=== PATIENT | male | born 1970 | race Caucasian/White ===

== ENCOUNTER 2020-12-04 08:45 | Outpatient (REF) | payer BC, SELFPAY ==
[2020-12-04 09:34] LABS: MANUAL DIFF FLAG NO
[2020-12-04 09:47] LABS: Basophils Percent Auto 0.3 % (0-2); Eosinophils Absolute Auto 0.1 X10*3/uL (0.0-0.4); Hematocrit 45.2 % (42-52); Hemoglobin 15.4 g/dl (14.0-18.0); Imm Gran Abs Auto 0.01 X10*3/uL (0.00-0.03); Imm Gran Pct Auto 0.2 % (0.0-0.4); Lymphocytes Absolute Auto 2.8 X10*3/uL (1.2-4.9); Lymphocytes Percent Auto 45.9 % (20-40); Mean Corpuscular HGB Conc 34.1 g/dl (31.0-36.0); Mean Corpuscular Hemoglobin 30.7 pg (27.0-33.0); Mean Corpuscular Volume 90.2 fL (80-98); Mean Platelet Volume 10.3 fL (9.4-12.4); Monocytes Absolute Auto 0.4 X10*3/uL (0.1-1.2); Monocytes Percent Auto 6.8 % (2-11); Neutrophils Absolute Auto 2.7 X10*3/uL (2.0-8.3); Neutrophils Percent Auto 44.8 % (45-73); Platelet Count 169 X10*3/uL (160-400); Red Blood Count 5.01 X10*6/uL (4.60-5.80); Red Cell Distribution Width 12.5 % (11.0-16.0)
[2020-12-04 09:54] LABS: Alanine Aminotransferase 35 U/L (0-40); Albumin Level 4.7 g/dL (3.5-5.0); Alkaline Phosphatase 49 U/L (39-117); Anion Gap 15 (12-20); Aspartate Amino Transferase 28 U/L (5-37); Bilirubin Total 0.8 mg/dL (0.0-1.0); Blood Urea Nitrogen 13 mg/dL (9-16); Calcium 9.4 mg/dL (8.4-10.2); Carbon Dioxide 27 mmol/L (22-29); Chloride 104 mmol/L (96-108); Cholesterol 199 mg/dL; Estimated Glomerular Filt Rate > 60; Glucose Fasting 99 mg/dL (60-99); HDL Cholesterol 35 mg/dL; LDL Cholesterol Calculated 127 mg/dl; Potassium 4.2 mmol/L (3.3-5.1); Sodium 142 mmol/L (135-145); Total Protein 7.2 g/dL (6.5-8.0); Triglycerides 187 mg/dL; Uric Acid 5.5 mg/dL (3.4-7.0)
== END 2020-12-04 08:46 | disposition home or self-care (01) ==
LOC: HO.LAB 08:45
PROVIDERS: PCP Internal Medicine; Visit Provider Internal Medicine
DX: I10 Essential (primary) hypertension (principal); M10.9 Gout, unspecified
CPT/HCPCS: 36415; 80053; 80061; 84443; 84550; 85025

== ENCOUNTER 2022-12-23 10:19 | Outpatient (REF) | payer BC, SELFPAY ==
[2022-12-23 10:34] LABS: MANUAL DIFF FLAG NO
[2022-12-23 11:02] LABS: Basophils Percent Auto 0.4 % (0-2); Eosinophils Absolute Auto 0.1 X10*3/uL (0.0-0.4); Eosinophils Percent Auto 1.1 % (0-4); Hematocrit 45.2 % (42.0-52.0); Hemoglobin 15.6 g/dl (14.0-18.0); Imm Gran Abs Auto 0.02 X10*3/uL (0.00-0.03); Imm Gran Pct Auto 0.3 % (0.0-0.4); Lymphocytes Absolute Auto 2.7 X10*3/uL (1.2-4.9); Lymphocytes Percent Auto 37.7 % (20-40); Mean Corpuscular HGB Conc 34.5 g/dl (31.0-36.0); Mean Corpuscular Hemoglobin 31.1 pg (27.0-33.0); Mean Corpuscular Volume 90.2 fL (80.0-98.0); Mean Platelet Volume 10.2 fL (9.4-12.4); Monocytes Absolute Auto 0.5 X10*3/uL (0.1-1.2); Monocytes Percent Auto 6.6 % (2-11); Neutrophils Absolute Auto 3.9 x10*3/uL (2.0-8.3); Neutrophils Percent Auto 53.9 % (45-73); Platelet Count 175 X10*3/uL (160-400); Red Blood Count 5.01 X10*6/uL (4.60-5.80); Red Cell Distribution Width 13.2 % (11.0-16.0); White Blood Count 7.3 X10*3/uL (4.8-10.8)
[2022-12-23 11:56] LABS: Alanine Aminotransferase 49 U/L (0-40); Albumin Level 4.4 g/dL (3.5-5.0); Alkaline Phosphatase 46 U/L (39-117); Anion Gap 12 (12-20); Aspartate Amino Transferase 35 U/L (5-37); Blood Urea Nitrogen 9 mg/dL (9-16); Calcium 9.3 mg/dL (8.4-10.2); Carbon Dioxide 29 mmol/L (22-29); Chloride 104 mmol/L (96-108); Cholesterol 179 mg/dL; Estimated Glomerular Filt Rate > 60; Glucose Fasting 95 mg/dL (60-99); HDL Cholesterol 35 mg/dL; LDL Cholesterol Calculated 106 mg/dl; Potassium 3.7 mmol/L (3.3-5.1); Sodium 141 mmol/L (135-145); Total Protein 7.2 g/dL (6.5-8.0); Triglycerides 194 mg/dL
[2022-12-23 12:00] LABS: Thyroid Stimulating Hormone 1.46 uIU/mL (0.32-4.0)
== END 2022-12-23 10:20 | disposition home or self-care (01) ==
LOC: HO.LAB 10:19
PROVIDERS: Visit Provider Internal Medicine
DX: D64.9 Anemia, unspecified (principal); N28.9 Disorder of kidney and ureter, unspecified; E03.9 Hypothyroidism, unspecified; E78.5 Hyperlipidemia, unspecified
CPT/HCPCS: 36415; 80053; 80061; 84443; 85025

== ENCOUNTER 2023-12-18 10:05 | Outpatient (REF) | payer BC, SELFPAY ==
[2023-12-19 10:44] LABS: Immunoglobulin A 176 mg/dL (47-310)
[2023-12-19 20:08] LABS: Gliadin Deamidated IgA Ab 4.8 U/mL; Gliadin Deamidated IgG Ab <1.0 U/mL
[2023-12-21 12:18] LABS: Endomysial IgA Antibody Negative (Negative)
[2023-12-22 08:52] LABS: Transglutaminase Ab IgG <1.0 U/mL; Transglutaminase IgA <1.0 U/mL
== END 2023-12-18 10:06 | disposition home or self-care (01) ==
LOC: HO.LAB 10:05
PROVIDERS: PCP Internal Medicine; Visit Provider Internal Medicine
DX: K58.0 Irritable bowel syndrome with diarrhea (principal)
CPT/HCPCS: 36415; 82784; 86231; 86258; 86364

== ENCOUNTER 2023-12-22 08:25 | Day surgery (SDC) | payer BC, SELFPAY ==
--- NOTE | 2023-12-20 11:57 | HO.ANESPROP2 ---
Documented by User: Carly Radford NP 12/20/23 11:57 HPI - Anesthesia Eval Consult details Narrative: 53yo M for Colonoscopy [facility] Active Problems Active Problems: All Active Problems Physical exam (Acute) Hypertension (Acute) Gout (Acute) Past Medical History Medical History (Updated 12/20/23 @ 13:58 by Myrna Huntley RN) HTN (hypertension) Gout Family History Family History (Updated 12/13/22 @ 11:07 by EVERARDO Mason) Mother No problems noted. Father No problems noted. Surgical History Surgical History (Updated 12/20/23 @ 14:00 by Myrna Huntley RN) History of bilateral inguinal hernia repair Social History Social History (Updated 12/20/23 @ 13:58 by Myrna Huntley RN) Housing: House Alcohol intake: current Alcohol intake frequency: a few times a week Patient Tobacco Use Status: Never used Tobacco e-Cigarette/Vaping Use: Never Used Second Hand Smoke Exposure: No Use of substances other than those prescribed or required for medical reasons: No Are you DNR?: No Advance Directives: No Advance Directives Information Provided: Yes service: No Current occupational status: employed 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 Father No problems noted. Family history of problems with anesthesia: No Surgical History Surgical History (Updated 12/20/23 @ 14:00 by Myrna Huntley RN) History of bilateral inguinal hernia repair History of Problems with Anesthesia: No Social History Social History (Updated 12/20/23 @ 13:58 by Myrna Huntley RN) Housing: House Alcohol intake: current Alcohol intake frequency: a few times a week Patient Tobacco Use Status: Never used Tobacco e-Cigarette/Vaping Use: Never Used Second Hand Smoke Exposure: No Use of substances other than those prescribed or required for medical reasons: No Are you DNR?: No Advance Directives: No Advance Directives Information Provided: Yes service: No Current occupational status: employed 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 Cognitive needs: No Hearing needs: No Vision needs: Yes (glasses) Meds Allergies Allergy/AdvReac Type Severity Reaction Status Date / Time No Known Allergies Allergy Verified 12/27/22 13:08 Exam Airway Mallampati Class: II TM Dist: >3cm Neck ROM: Full Assessment and Plan Assessment Anesthesia Assessment: Anesthesia Plan Discussed Final Anesthetic Review Family History of Problems with Anesthesia: No History of Problems with Anesthesia: No NPO: Yes ASA Class: II Final Preanesthetic Review: No Changes in Pt Med Stat, Meds/Allgs Chart Reviewed, Consent Obtained/Reviewed and Anes Risks/Benef Reviewed Patient Risk: Low Procedure Risk: Low Anesthetic Plan Anesthetic Plan: TIVA Disposition: Standard PACU
[2023-12-20 13:58] VITALS: BMI 29.2
[2023-12-22 08:56] VITALS: BMI 27.3
[2023-12-22 09:00] VITALS: BP 160/97; PULSE 67; RESP 16; TEMP 36.8; O2SAT 96
[2023-12-22] MEDS: Lactated Ringers 1,000 ML 100 ML IVCONT (09:19)
[2023-12-22 10:56] VITALS: BP 109/60; PULSE 75; RESP 16; TEMP 36.1; O2SAT 97
--- NOTE | 2023-12-22 10:59 | P.BOP_ITS ---
Brief Operative Note Date of Service: 12/22/23 Pre-op diagnosis: Screening, Irregular BM's Post-op diagnosis: other (Colon polyps) Procedure: Colonoscopy to the cecum and TI with biopsies, and bx/removal of polyps Surgeon: Donny Olivarez MD Anesthesia: MAC Was an Senior Architectural Designer used for this Procedure?: No Estimated blood loss (mL): 2.0 Pathology: other (A. Cecal polyp B. Ascending colon C. Descending colon D. Distal rectal polyp) Condition: stable Disposition: PACU
[2023-12-22 11:11] VITALS: BP 115/70; PULSE 55; RESP 18; TEMP 36.1; O2SAT 98
--- NOTE | 2023-12-22 14:35 | OP_ITS ---
DATE OF SERVICE: 12/22/2023 SURGEON: Donny Olivarez MD INDICATIONS: The patient presents for evaluation of colorectal cancer screening and irregular bowel movements. Full consent has been obtained from him for this, including risks of bleeding and perforation. PREOPERATIVE DIAGNOSIS: Colorectal cancer screening and irregular bowel movements. POSTOPERATIVE DIAGNOSIS: PROCEDURE PERFORMED: Colonoscopy to the cecum and terminal ileum with biopsies and biopsy and removal of polyps. ESTIMATED BLOOD LOSS: COMPLICATIONS: ANESTHESIA: Monitored anesthesia care. ASSISTANTS: SPECIMENS: POSTOPERATIVE DIAGNOSES: Colorectal cancer screening and irregular bowel movements, small colon polyps, rule out microscopic colitis, mild sigmoid diverticulosis, internal hemorrhoids. DESCRIPTION OF PROCEDURE: The patient was placed in the left lateral decubitus position. The digital rectal exam revealed no abnormalities. The Olympus video pediatric colonoscope was entered into the rectum and advanced easily to the cecum. Once in the cecum, I did identify normal-appearing cecal pouch other than a 3 mm polyp, which was biopsied and completely removed with a cold biopsy forceps. The remainder of the cecum appeared completely normal including the appendiceal orifice. The terminal ileum was cannulated and appeared normal. Scope was withdrawn back in the colon. The ileocecal valve appeared normal. The scope was then slowly withdrawn assessing all mucosal surfaces carefully. Preparation was excellent. There was no evidence of any colitis nor angiodysplasia. Random biopsies were obtained in the ascending and descending colon. There was an occasional diverticulum in the ascending colon and a mild amount of diverticulosis in the sigmoid colon. In the rectum, scope was retroflexed visualizing internal hemorrhoids as well as a 3 or 4 mm polyp, which was biopsied and completely removed with a cold biopsy forceps. The scope was straightened and withdrawn from the patient. He tolerated the procedure well and was returned to the recovery area in stable condition. IMPRESSION: 1. Small colon polyps. 2. Diverticulosis. 3. Rule out microscopic colitis. 4. Internal hemorrhoids. PLAN: The results of the biopsies will be checked. If the polyp is a tubular adenoma, I would recommend a followup coloscopy in 5 years. If they are both hyperplastic, I would recommend a followup coloscopy in 10 years for screening. He was advised not to use any aspirin nor NSAIDs for 1 week. He was advised to continue to use a fiber supplement to see if that can help improve his bowel movement irregularity. Recent laboratories for celiac disease were negative. He will see me on a p.r.n. basis. MD MARTIN Cruz/VITA / [id number] MTDD
== END 2023-12-22 11:37 | disposition home or self-care (01) ==
PROVIDERS: PCP Internal Medicine; Visit Provider Internal Medicine
PROC: 0DJD8ZZ Inspection of Lower Intestinal Tract, Via Natural or Artificial Opening Endoscopic (ICD-10-PCS; CPT 45378; principal; 2023-12-22 08:30)
DX: K62.5 Hemorrhage of anus and rectum (principal); R19.4 Change in bowel habit; D12.0 Benign neoplasm of cecum; D12.8 Benign neoplasm of rectum; K57.30 Diverticulosis of large intestine without perforation or abscess without bleeding; K64.8 Other hemorrhoids; I10 Essential (primary) hypertension
CPT/HCPCS: 45380; 88305; J2704

== ENCOUNTER 2023-12-29 10:03 | Outpatient (AMB) | payer BC, SELFPAY ==
[2023-12-29 10:04] VITALS: BP 142/90; PULSE 72; O2SAT 97; BMI 27.4
--- NOTE | 2023-12-29 10:04 | A.OFFPC_ITS ---
Vital Signs 12/29/23 10:04 Height 5 ft 10 in Weight 191 lb 0.2 oz BMI 27.4 BP 142/90 H Blood Pressure Location Lt brachial Position Sitting Pulse 72 Pulse Source Pulse Oximeter Pulse Oximetry (%) 97 Oxygen Delivery Method Room Air Intake Visit Reasons: Annual Exam- SEE BULLETIN BOARD Professor Of Radiology Required: No Accompanied by: Self / Same As Patient Allergies No Known Allergies Allergy (Verified 12/29/23 10:05) Medication List - Last Reconciled 12/29/23 by Harshad Awad MD allopurinol 300 mg PO DAILY lisinopril 10 mg PO DAILY Tobacco use date assessed: 12/29/23 Dental Screening Dental Screen Date: 12/29/23 Did you have a dental visit in the last 12 months?: Yes Did you have a dental problem in the last 6 months where you did not have access to dental care?: No Was dental information given to patient?: Patient has dentist HPI Annual Exam- SEE BULLETIN BOARD HPI Details HTN and gout; bp has been high [facility] Medical History (Updated 12/29/23 @ 10:24 by Harshad Awad MD) HTN (hypertension) Gout Surgical History (Updated 12/20/23 @ 14:00 by Myrna Huntley RN) History of bilateral inguinal hernia repair Family History (Updated 12/13/22 @ 11:07 by EVERARDO Mason) Mother No problems noted. Father No problems noted. 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 How often do you have a drink containing alcohol?: 2-3 times a week 2. How many drinks containing alcohol do you have on a typical day when you are drinking?: 1 or 2 3. How often do you have six or more drinks on one occasion?: Never Total Score: 3 JASPER-7 AMB Questionnaire JASPER-7 Date JASPER - 7 assessed: 12/29/23 Feeling nervous, anxious, or on edge: 0 = Not at all Not being able to stop or control worryin = Not at all Worrying too much about different things: 0 = Not at all Trouble relaxin = Not at all Being so restless that it is hard to sit still: 0 = Not at all Becoming easily annoyed or irritable: 0 = Not at all Feeling afraid as if something awful might happen: 0 = Not at all Total JASPER-7 score (0-4 normal; 5-9 mild; 10-14 moderate; 15-21 severe): 0 Source: Developed by Drs. Donny Palma, Amirah Diaz, John Porras and colleagues, with an educational kamala from [employer]. JASPER-7 Assessment Billing JASPER-7 Assessment Tool: JASPER-7 Assessment 05338 Review of Systems Const Denies chills, Denies fatigue, Denies headache(s) and Denies weight loss Eyes Denies change in vision, Denies diplopia and Denies eye pain ENT Denies vertigo, Denies dizziness, Denies headache(s) and Denies nasal discharge Card Denies chest pain, Denies rapid heart rate and Denies dyspnea on exertion Resp Denies chest congestion, Denies cough, Denies pain with cough and Denies dyspnea on exertion GI Denies abdominal pain, Denies hematochezia and Denies change in bowel habits Musc Denies myalgias, Denies arthralgias and Denies joint swelling Skin/Breast Denies lesions and Denies unusual bruising Neuro Denies vertigo, Denies dizziness, Denies headache(s) and Denies focal weakness Endo Denies fatigue Physical exam (Primary Care) Vital Signs: Last Vital Signs Pulse 72 12/29/23 10:04 BP 142/90 H 12/29/23 10:04 Pulse Ox 97 12/29/23 10:04 Oxygen Delivery Method Room Air 12/29/23 10:04 BMI result Body Mass Index 27.4 Tobacco/Smoking Status: Tobacco use Status Tobacco use date assessed 12/29/23 12/29/23 10:12 Patient Tobacco Use Status Never used Tobacco 12/29/23 10:12 e-Cigarette/Vaping Use Never Used 12/29/23 10:12 Thrive Assessment: Date of Thrive Assessment Date Thrive assessed 12/13/22 12/29/23 10:12 Const General: cooperative, healthy appearing and no acute distress Orientation/consciousness: oriented to person, oriented to place and oriented to time HENMT Head: Yes normal to inspection, Yes normocephalic and Yes atraumatic Mouth: Normal oral and palatal mucosa present and tongue normal Throat: Yes posterior oropharynx normal and Yes uvula midline Eyes General: appearance normal, both eyes and all related structures Neck Neck: Yes normal visual inspection, Yes full ROM and Yes no lymphadenopathy Thyroid: Thyroid normal Carotids: normal carotid upstroke Chest Chest palpation & inspection: normal inspection of the chest Resp Effort & Inspection: normal respiratory effort and able to speak in complete sentences Auscultation: clear to auscultation bilaterally Cardio Jugular venous distension: no JVD Palpation: normal PMI Rate: regular rate Rhythm: regular rhythm Heart sounds: S1 normal heart sound present and S2 normal heart sound present GI Inspection: Yes normal to inspection Palpation (GI): Soft to palpation and No hepatosplenomegaly present Auscultation: normal bowel sounds General: Yes no CVA tenderness Back/Spine/Pelvis Back: no CVA tenderness Skin General skin exam: no rashes or lesions noted Neuro General: oriented to person, oriented to place and oriented to time Extrem General: Yes normal to inspection and Yes full ROM Assessment and Plan Assessment & Plan (1) Physical exam: Code(s): Z00.00 - Encounter for general adult medical examination without abnormal findings Plan: stable; do labs (2) Hypertension: Code(s): I10 - Essential (primary) hypertension Plan: increase lisinopril to 20mg (3) Gout: Code(s): M10.9 - Gout, unspecified Plan: stable; same rx Orders: Orders Lipid Panel Today Z13.220 - Encounter for screening for lipoid disorders Complete Blood Count Auto Diff Today Z13.0 - Encounter for screening for diseases of the blood and blood-forming organs and certain disorders involving the immune mechanism Comprehensive [place]. Panel Fast Today Z13.9 - Encounter for screening, unspecified Thyroid Stimulating Hormone Today Z13.29 - Encounter for screening for other suspected endocrine disorder Referrals Podiatry Referral M79.673 - Pain in unspecified foot Medications: New lisinopril 20 mg PO DAILY 90 tabs 3RF Discontinued lisinopril Discontinued Reason: None 10 mg PO DAILY 30 tabs 3RF Coding Level of Care Code Est Pt Prev Care 40-64y(99519) Diagnoses Physical exam Z00.00 Hypertension I10 Gout M10.9 Additional Codes JASPER-7 Assessment Billing - JASPER-7 Assessment Tool: JASPER-7 Assessment 56113 ([id number])
== END 2023-12-29 10:19 | disposition home or self-care (01) ==
PROVIDERS: PCP Internal Medicine; Visit Provider Internal Medicine
DX: Z00.00 Encounter for general adult medical examination without abnormal findings (principal); I10 Essential (primary) hypertension; M10.9 Gout, unspecified
CPT/HCPCS: 99396

== ENCOUNTER 2024-12-31 10:01 | Outpatient (AMB) | payer BC, SELFPAY ==
--- NOTE | 2024-12-31 10:05 | A.OFFPC_ITS ---
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 Accompanied by: Self / Same As Patient Allergies No Known Allergies Allergy (Verified 12/31/24 10:24) Medication List - Last Reconciled 12/31/24 by Cata Ashley PA-C allopurinol 300 mg PO DAILY lisinopril 20 mg PO DAILY Tobacco use date assessed: 12/31/24 Dental Screening Dental Screen Date: 12/31/24 Did you have a dental visit in the last 12 months?: No Did you have a dental problem in the last 6 months where you did not have access to dental care?: No Was dental information given to patient?: Patient has dentist HPI XIAO from [facility]/annual Exam 2 HPI0 Details 54-year-old male with past medical histo ry of gout, hypertension last seen by Dr. Awad 12/2023 coming in for annual exam. The patient is a 54-year-old male presenting for an annual exam and management of chronic conditions. The patient reports a history of hypertension, with current blood pressure readings at home around 145/90 mmHg, but higher readings in the clinic at 164/110 mmHg. He is currently on lisinopril 20 mg daily and is considering increasing the dose due to elevated readings. The patient reports experiencing erectile dysfunction and has been using tadalafil 2.5 mg, which he finds effective but interested in trying a 5 mg dose for better efficacy. The patient had a melanoma removed from his back in June, with no spread noted. The patient suspects diastasis recti due to a visible bulge in the abdomen when flexing. colonoscopy: completed 2023 repeat in 5 years PSA: ordered for blood work [facility] Medical History Melanoma HTN (hypertension) Gout Surgical History History of bilateral inguinal hernia repair Family History Mother No problems noted. Father No problems noted. 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 1. Little interest or pleasure in doing things: not at all 2. Feeling down, depressed, or hopeless: not at all 3. Trouble falling or staying asleep, or sleeping too much: not at all 4. Feeling tired or having little energy: not at all 5. Poor appetite or overeating: not at all 6. Feeling bad about yourself - or that you are a failure or have let yourself or your family down: not at all 7. Trouble concentrating on things, such as reading the newspaper or watching television: not at all 8. Moving or speaking so slowly that other people could have noticed. Or the opposite - being so fidgety or restless that you have been moving around a lot more than usual: not at all 9. Thoughts that you would be better off or of hurting yourself in some way: not at all Total score: 0 Depression Screening Interpretation: Negative Depression Screening Done: Yes Source: Developed by Drs. Donny Palma, Amirah Diaz, John Porras and colleagues, with an educational kamala from [employer]. Thrive Questionnaire Date Thrive assessed: 12/30/24 I am a: Patient What is your living situation today?: I have a steady place to live Within the past 12 months, did the food you bought not last and you didn't have the money to get more?: Never true Within the past 12 months, did you worry whether your food would run out before you got money to buy more?: Never true Do you have trouble paying for medicines?: No Do you have trouble getting transportation to medical appointments?: No Do you have trouble paying your heating and electricity bill?: No Do you have trouble taking care of your child, family member or friend?: No Do you have trouble with day-to-day activities such as bathing, preparing meals, shopping, managing finances, etc.?: No Are you currently unemployed and looking for a job?: No Are you interested in more education?: No Please select the resources that you would like help with: None Currently or been in a relationship where the following occur: No concerns reported THRIVE Score: 0 AUDIT C Alcohol Use Questionnaire (AUDIT-C) 1. How often do you have a drink containing alcohol?: Monthly or less 2. How many drinks containing alcohol do you have on a typical day when you are drinking?: 3 or 4 Total Score: 2 Score Reviewed/Action Taken: Yes JASPER-7 AMB Questionnaire JASPER-7 Date JASPER - 7 assessed: 12/31/24 Feeling nervous, anxious, or on edge: 0 = Not at all Not being able to stop or control worryin = Not at all Worrying too much about different things: 0 = Not at all Trouble relaxin = Not at all Being so restless that it is hard to sit still: 0 = Not at all Becoming easily annoyed or irritable: 0 = Not at all Feeling afraid as if something awful might happen: 0 = Not at all Total JASPER-7 score (0-4 normal; 5-9 mild; 10-14 moderate; 15-21 severe): 0 Source: Developed by Drs. Donny Palma, Amirah Diaz, John Porras and colleagues, with an educational kamala from [employer]. Review of Systems Const Denies body aches, Denies fatigue, Denies fever(s), Denies frequent falls, Denies headache(s) and Denies weakness Eyes Reports no additional complaints, Denies change in vision and Denies requires corrective lenses ENT Denies dysphagia, Denies dizziness, Denies headache(s) and Denies odynophagia Card Denies chest pain, Denies syncope, Denies irregular heart rhythm, Denies leg edema, Denies lightheadedness and Denies dyspnea Resp Denies cough and Denies dyspnea GI Denies abdominal pain, Denies constipation, Denies dysphagia, Denies dyspepsia, Denies diarrhea, Denies nausea, Denies odynophagia and Denies vomiting Denies dysuria, Denies urinary frequency, Denies urinary hesitancy and Denies urinary urgency Musc Denies back pain and Denies myalgias Skin/Breast Reports system reviewed and no additional complaints, except as documented Neuro Denies dizziness, Denies syncope, Denies frequent falls, Denies headache(s) and Denies weakness Psych Reports no additional complaints Endo Denies fatigue Physical exam (Primary Care) Vital Signs: Last Vital Signs Temp 97.1 F 12/31/24 10:07 Pulse 62 12/31/24 10:07 BP 166/102 H 12/31/24 10:07 Pulse Ox 99 12/31/24 10:07 Oxygen Delivery Method Room Air 12/31/24 10:07 BMI result Body Mass Index 28.9 Tobacco/Smoking Status: Tobacco use Status Tobacco use date assessed 12/31/24 12/31/24 10:12 Patient Tobacco Use Status Never used Tobacco 12/31/24 10:12 e-Cigarette/Vaping Use Never Used 12/31/24 10:12 PHQ-9: PHQ-9 Score PHQ-9: Total score 0 12/31/24 10:23 Depression Screening Interpretation: Negative Thrive Assessment: Date of Thrive Assessment Date Thrive assessed 12/30/24 12/31/24 10:12 Currently or been in a relationship where the following occur: No concerns reported Const General: cooperative, healthy appearing, comfortable and no acute distress Orientation/consciousness: patient oriented x3 HENMT Head: Yes normocephalic Ears: hearing grossly normal bilaterally, external ears normal, TM's normal bilaterally and Abnormal EAC present cerumen impaction bilateral General nose exam: Normal external nose present Face and sinus: Yes normal facial exam and Yes sinuses nontender Mouth: Normal oral and palatal mucosa present and tongue normal Throat: Yes posterior oropharynx normal Eyes General: appearance normal, both eyes and all related structures Conjunctivae: conjunctivae normal Pupils: Equal, round and reactive pupils present EOM: EOMs intact bilaterally and No Nystagmus present Neck Neck: Yes normal visual inspection, Yes full ROM and Yes no lymphadenopathy Chest Chest palpation & inspection: normal inspection of the chest Resp Effort & Inspection: normal respiratory effort Auscultation: clear to auscultation bilaterally, no crackles, no rales, no rhonchi, no wheezes and breath sounds present Cardio Rate: regular rate Rhythm: regular rhythm Peripheral pulses: radial pulses present and dorsalis pedis present GI Inspection: Yes normal to inspection and No Abdominal wall edema Palpation (GI): Soft to palpation, not firm and nontender Auscultation: normal bowel sounds Rectal Exam - Male: Yes deferred Abdomen image: 2 1. abdominal bulge visible while flexing General: Yes no CVA tenderness Back/Spine/Pelvis Back: no CVA tenderness Skin General skin exam: no rashes or lesions noted Neuro General: patient oriented x3 Cranial nerves: Yes Equal, round and reactive pupils present, Yes Midline tongue present, Yes Ability to bilaterally elevate shoulders present and No Nystagmus present Gait exam (Neuro): Normal gait present Extrem General: Yes normal to inspection, Yes full ROM, No no pedal edema and No edema Psych Speech and movement: Normal speech and movement present Affect: normal affect Insight: Good insight present (Psych) Judgement: Good judgement present (Psych) Coding Level of Care Code Est Pt Prev Care 40-64y(64441) Diagnoses Physical exam Z00.00 Hypertension I10 Gout M10.9 Obesity E66.9 Erectile dysfunction N52.9 Hypersomnolence G47.10 Screening for hypercholesterolemia Z13.220 Screening for diabetes mellitus Z13.1 Screening for prostate cancer Z12.5 Abdominal wall bulge R19.00 Impacted cerumen of both ears H61.23 Assessment & Plan Assessment & Plan (1) Physical exam: Code(s): Z00.00 - Encounter for general adult medical examination without abnormal findings Category: Medical Plan: Patient is up-to-date on all recommended routine screenings and vaccinations for his age. I ordered for updated blood work. Healthy diet and regular exercise is encouraged. (2) Hypertension: Code(s): I10 - Essential (primary) hypertension Category: Medical Plan: Continue on current blood pressure medication. Avoid salt intake and encourage healthy diet and regular exercise. Blood pressure elevated in the office today he states it is always elevated when he comes in to his doctor's appointments. He has been monitoring his blood pressure daily and they are in the 140 over high 80s diastolic ranges. Plan to increase lisinopril to 40 mg at this time and ordered for updated blood work to ensure kidney function is adequate. (3) Gout: Code(s): M10.9 - Gout, unspecified Category: Medical Plan: Continue on allopurinol. Has not had a flare of gout in 7-8 years (4) Obesity: Code(s): E66.9 - Obesity, unspecified Category: Medical Plan: Healthy diet and regular exercise is encouraged. (5) Erectile dysfunction: Code(s): N52.9 - Male erectile dysfunction, unspecified Category: Medical Plan: Patient was previously getting tadalafil 2.5 mg through online website and follows beneficial. He would like to increase to 5 mg at this time and continue with daily dosing. Prescription was sent to pharmacy (6) Hypersomnolence: Code(s): G47.10 - Hypersomnia, unspecified Category: Medical Plan: Plan to obtain sleep study for further evaluation. (7) Screening for hypercholesterolemia: Code(s): Z13.220 - Encounter for screening for lipoid disorders Category: Medical Plan: Blood work ordered (8) Screening for diabetes mellitus: Code(s): Z13.1 - Encounter for screening for diabetes mellitus Category: Medical Plan: Blood work ordered (9) Screening for prostate cancer: Code(s): Z12.5 - Encounter for screening for malignant neoplasm of prostate Category: Medical Plan: Blood work ordered (10) Abdominal wall bulge: Code(s): R19.00 - Intra-abdominal and pelvic swelling, mass and lump, unspecified site Category: Medical Plan: Patient has visible bulge on exam that is easily reducible without discernible edges. I did discuss the test of choice is a abdominal/pelvis CAT scan. Patient has found online resource through [employer] team virtual and program and would like to explore these options prior to imaging. Reviewed red flag symptoms led to present for re-evaluation (11) Impacted cerumen of both ears: Code(s): H61.23 - Impacted cerumen, bilateral Category: Medical Plan: Advised patient he can come back for ear cleaning if he would like to have them done. Plan The plan for managing the patient's essential hypertension includes increasing the lisinopril dosage to 40 mg daily, with a follow-up in six weeks to monitor blood pressure response. The patient is advised to maintain a log of home blood pressure readings to bring to the next visit. Lifestyle modifications such as reducing alcohol intake, increasing physical activity, and dietary changes are recommended to aid in blood pressure control. For erectile dysfunction, the patient will switch to tadalafil 5 mg daily, with a prescription sent to the pharmacy. The patient is advised to monitor the effectiveness and report any issues. The insurance may require prior authorization, and alternative medications like sildenafil may be considered if necessary. The patient is scheduled for comprehensive blood work, including A1c for diabetes screening, cholesterol levels, and prostate-specific antigen PSA) for prostate cancer screening. The patient is instructed to fast for 8 to 10 hours before the blood draw and avoid certain activities that may affect PSA levels. The patient is encouraged to continue managing gout with allopurinol and to avoid high purine foods and alcohol, which may trigger flares. For diastasis recti, the patient is exploring non-surgical management options and will monitor for any changes. This note was constructed using voice recognition software. While every effort has been made to ensure accuracy and library technology instructor, still areas may have been included sometimes these areas may affect the content or meeting of the given symptoms. Total time spent caring for the patient today was 45 minutes. This includes time spent before the visit reviewing the chart, time spent during the visit, and time spent after the visit and documentation. Patient was informed and verbally consented to the use of an ambient scribe for clinic note documentation during this visit. Orders: Orders 2 TSH reflex Free T4 Today E66.9 - Obesity, unspecified, Z00.00 - Encounter for general adult medical examination without abnormal findings Complete Blood Count Auto Diff Today E66.9 - Obesity, unspecified, Z00.00 - Encounter for general adult medical examination without abnormal findings Lipid Panel Today E66.9 - Obesity, unspecified, Z13.220 - Encounter for screening for lipoid disorders Vitamin B12 and Folate Today E66.9 - Obesity, unspecified, Z13.21 - Encounter for screening for nutritional disorder Vitamin D 25-OH Total Today E66.9 - Obesity, unspecified, Z00.00 - Encounter for general adult medical examination without abnormal findings Free T4 (Free Thyroxine) Today E66.9 - Obesity, unspecified, Z00.00 - Encounter for general adult medical examination without abnormal findings Comprehensive Met. Panel Today E66.9 - Obesity, unspecified, Z00.00 - Encounter for general adult medical examination without abnormal findings Hemoglobin A1c Today E66.9 - Obesity, unspecified, Z13.1 - Encounter for screening for diabetes mellitus Testosterone, Total Today N52.9 - Male erectile dysfunction, unspecified PSA, Ultra Sensitive Today Z12.5 - Encounter for screening for malignant neoplasm of prostate RT home sleep study Today G47.10 - Hypersomnia, unspecified Medications: New 2 lisinopril 40 mg PO DAILY 90 tabs 0RF tadalafil (Cialis) 5 mg PO DAILY 90 tabs 0RF N52.9 - Male erectile dysfunction, unspecified Discontinued 2 lisinopril Discontinued Reason: Patient no longer taking 20 mg PO DAILY 90 tabs 3RF
[2024-12-31 10:07] VITALS: BP 166/102; PULSE 62; TEMP 36.2; O2SAT 99; BMI 28.9
== END 2024-12-31 11:07 | disposition home or self-care (01) ==
LOC: HO.HMCH 10:02
DX: Z00.00 Encounter for general adult medical examination without abnormal findings (principal); M10.9 Gout, unspecified; E66.9 Obesity, unspecified; Z68.28 Body mass index [BMI] 28.0-28.9, adult; I10 Essential (primary) hypertension; N52.9 Male erectile dysfunction, unspecified; G47.10 Hypersomnia, unspecified; Z13.220 Encounter for screening for lipoid disorders; Z13.1 Encounter for screening for diabetes mellitus; Z12.5 Encounter for screening for malignant neoplasm of prostate; R19.00 Intra-abdominal and pelvic swelling, mass and lump, unspecified site; H61.23 Impacted cerumen, bilateral

== ENCOUNTER → 2024-12-31 10:01 | Outpatient (BNVA) | payer BC, SELFPAY | DX: Z13.89 Encounter for screening for other disorder (principal) ==

== ENCOUNTER 2025-02-22 10:12 | Outpatient (REF) | payer BC, SELFPAY ==
[2025-02-22 10:32] LABS: MANUAL DIFF FLAG NO
[2025-02-22 10:48] LABS: Hematocrit 44.3 % (42.0-52.0); Hemoglobin 15.4 g/dl (14.0-18.0); Imm Gran Abs Auto 0.02 X10*3/uL (0.00-0.03); Imm Gran Pct Auto 0.3 % (0.0-0.4); Lymphocytes Absolute Auto 2.1 X10*3/uL (1.2-4.9); Mean Corpuscular HGB Conc 34.8 g/dl (31.0-36.0); Mean Corpuscular Hemoglobin 32.3 pg (27.0-33.0); Mean Corpuscular Volume 92.9 fL (80.0-98.0); NRBC Abs Auto 0.000 X10*3/uL (0.0-0.012); NRBC Pct Auto 0.0 /100WBC (0.0-0.2); Platelet Count 159 X10*3/uL (160-400); Red Blood Count 4.77 X10*6/uL (4.60-5.80); White Blood Count 6.3 X10*3/uL (4.8-10.8)
[2025-02-22 11:22] LABS: Hemoglobin A1C 142.4877 umol/L; Total Hemoglobin (HGBA1C) 4151.2907 umol/L
[2025-02-22 11:29] LABS: Alanine Aminotransferase 33 U/L (0-40); Albumin Level 4.8 g/dL (3.5-5.0); Alkaline Phosphatase 44 U/L (39-117); Anion Gap 18 (12-20); Aspartate Amino Transferase 31 U/L (5-37); Blood Urea Nitrogen 13 mg/dL (9-16); Calcium 9.0 mg/dL (8.4-10.2); Carbon Dioxide 26 mmol/L (22-29); Chloride 105 mmol/L (96-108); Cholesterol 196 mg/dL (<200); Estimated Glomerular Filt Rate > 60; HDL Cholesterol 42 mg/dL (>40); Potassium 4.4 mmol/L (3.3-5.1); Sodium 145 mmol/L (135-145); Total Protein 7.4 g/dL (6.5-8.0); Triglycerides 129 mg/dL (<150)
[2025-02-22 11:39] LABS: Free T4 (Free Thyroxine) 1.04 ng/dL (0.71-1.85)
[2025-02-22 11:50] LABS: Folate 12.1 ng/mL (> or = 4.0); Vitamin B12 225 pg/mL (200-900)
[2025-02-26 23:28] LABS: PSA, Ultra Sensitive 4.51 ng/mL
== END 2025-02-22 10:13 | disposition home or self-care (01) ==
LOC: HO.LAB 10:12
DX: Z00.00 Encounter for general adult medical examination without abnormal findings (principal); Z12.5 Encounter for screening for malignant neoplasm of prostate; Z13.220 Encounter for screening for lipoid disorders; Z13.1 Encounter for screening for diabetes mellitus; Z13.21 Encounter for screening for nutritional disorder; E66.9 Obesity, unspecified; N52.9 Male erectile dysfunction, unspecified
CPT/HCPCS: 36415; 80053; 80061; 82306; 82607; 82746; 83036; 84153; 84403; 84439; 84443; 85025

== ENCOUNTER 2025-02-25 10:06 | Outpatient (AMB) | payer BC, SELFPAY ==
--- OUTSIDE RECORDS SUMMARY | 2023-12-22 05:10 | XMS_ITS ---
Author Organization [facility] Address [address] [place] [address] Care Team Providers Care Quantitative Analyst Developer Name Role Phone Harshad Awad MD Primary Care Provider Donny Carrera Unavailable [phone] REASON FOR VISIT colon screening Problems Problem Type SNOMED Code ICD Code Onset Dates Problem Status W/U Status Risk Notes Problem Diverticulosis o f large intestine without perforation or abscess without bleeding (K57.30) Active confirmed Encounters Encounter Location Date Provider Diagnosis [facility] [address] [place] [id number] 12/22/2023 Donny Olivarez Encounter for scre ening [...] Of Treatment No Information Progress Notes * WILDER BERRYDOB:1970 (54 yo M)Acc No.[id number]:12/22/2023 COLON WITH MAC Patient: WILDER ZAVALA Provider: Aster Olivarez MD :1970 A ge:53 Y S ex:Male Date:12/22/2023 Address:[address] [place] [address] [address] [facility] Pcp:Harshad Awad MD Subjective: * Chief Complaints: [...] MD Date: 0 12/22/2023 Generated for Jen montanez/Vinny/Myronitting on: 0 02/25/2025 11:21 AM EDT
--- NOTE | 2025-02-25 10:10 | MHC.PC.OV ---
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 Required: No Accompanied by: Self / Same As Patient Allergies No Known Allergies Allergy (Verified 02/25/25 10:34) Medication List - Last Reconciled 02/25/25 by Cata Ashley PA-C allopurinol 300 mg PO DAILY cholecalciferol (vitamin D3) 25 mcg PO DAILY lisinopril 40 mg PO DAILY tadalafil (Cialis) 5 mg PO DAILY Tobacco use date assessed: 02/25/25 Dental Screening Dental Screen Date: 02/25/25 Did you have a dental visit in the last 12 months?: No Did you have a dental problem in the last 6 months where you did not have access to dental care?: No Was dental information given to patient?: Patient has dentist HPI f/u HTN and blood work HPI Details 54-year-old male with past medical history of gout, hypertension last seen 12/2024 coming in for follow up. Presenting with hypertension management. The patient has been monitoring blood pressure at home, noting it remains elevated despite medication adjustments. The current medication regimen includes lisinopril at 40 mg, which is the maximum dose. The patient reports efforts to improve lifestyle, including dietary changes and increased physical activity, but acknowledges the need for further weight loss. The patient experiences intermittent neuropathy in the feet, possibly related to prolonged sitting. [facility] Medical History Melanoma HTN (hypertension) Gout Surgical History History of bilateral inguinal hernia repair Family History Mother No problems noted. Father No problems noted. 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 Cognitive needs: No Hearing needs: No Vision needs: Yes (glasses) Questionnaire Thrive Questionnaire Date Thrive assessed: 02/25/25 I am a: Patient What is your living situation today?: I have a steady place to live Within the past 12 months, did the food you bought not last and you didn't have the money to get more?: Never true Within the past 12 months, did you worry whether your food would run out before you got money to buy more?: Never true Do you have trouble paying for medicines?: No Do you have trouble getting transportation to medical appointments?: No Do you have trouble paying your heating and electricity bill?: No Do you have trouble taking care of your child, family member or friend?: No Do you have trouble with day-to-day activities such as bathing, preparing meals, shopping, managing finances, etc.?: No Are you currently unemployed and looking for a job?: No Are you interested in more education?: No Please select the resources that you would like help with: None Currently or been in a relationship where the following occur: No concerns reported THRIVE Score: 0 JASPER-7 AMB Questionnaire JASPER-7 Date JASPER - 7 assessed: 02/25/25 Source: Developed by Drs. Donny Palma, Amirah Diaz, John Porras and colleagues, with an educational kamala from [employer]. Review of Systems Const Denies body aches, Denies fatigue, Denies fever(s), Denies frequent falls, Denies headache(s) and Denies weakness Eyes Reports no additional complaints and Denies change in vision ENT Denies dysphagia, Denies dizziness, Denies facial pain, Denies headache(s), Denies nasal congestion and Denies odynophagia Card Denies chest pain, Denies syncope, Denies irregular heart rhythm, Denies leg edema, Denies lightheadedness and Denies dyspnea Resp Denies cough and Denies dyspnea GI Denies constipation, Denies dysphagia, Denies dyspepsia, Denies diarrhea, Denies nausea, Denies odynophagia and Denies vomiting Denies dysuria, Denies urinary frequency, Denies urinary hesitancy and Denies urinary urgency Musc Denies back pain and Denies myalgias Skin/Breast Reports system reviewed and no additional complaints, except as documented Neuro Denies dizziness, Denies syncope, Denies frequent falls, Denies headache(s) and Denies weakness Psych Reports no additional complaints Endo Denies fatigue Physical exam (Primary Care) Vital Signs: Last Vital Signs Pulse 108 H 02/25/25 10:12 BP 164/98 H 02/25/25 10:46 Pulse Ox 98 02/25/25 10:12 Oxygen Delivery Method Room Air 02/25/25 10:12 BMI result Body Mass Index 28.7 Tobacco/Smoking Status: Tobacco use Status Tobacco use date assessed 02/25/25 02/25/25 10:18 Patient Tobacco Use Status Never used Tobacco 02/25/25 10:18 e-Cigarette/Vaping Use Never Used 02/25/25 10:18 Thrive Assessment: Date of Thrive Assessment Date Thrive assessed 02/25/25 02/25/25 10:18 Currently or been in a relationship where the following occur: No concerns reported Const General: cooperative, healthy appearing, comfortable and no acute distress Orientation/consciousness: patient oriented x3 HENMT Head: Yes normocephalic Ears: hearing grossly normal bilaterally, external ears normal, TM's normal bilaterally and EAC's normal General nose exam: Normal external nose present Face and sinus: Yes normal facial exam and Yes sinuses nontender Mouth: Normal oral and palatal mucosa present and tongue normal Throat: Yes posterior oropharynx normal Eyes General: appearance normal, both eyes and all related structures Conjunctivae: conjunctivae normal Pupils: Equal, round and reactive pupils present EOM: EOMs intact bilaterally and No Nystagmus present Neck Neck: Yes normal visual inspection, Yes full ROM and Yes no lymphadenopathy Chest Chest palpation & inspection: normal inspection of the chest Resp Effort & Inspection: normal respiratory effort Auscultation: clear to auscultation bilaterally, no crackles, no rales, no rhonchi, no wheezes and breath sounds present Cardio Rate: regular rate Rhythm: regular rhythm Peripheral pulses: radial pulses present and dorsalis pedis present GI Inspection: Yes normal to inspection and No Abdominal wall edema Palpation (GI): Soft to palpation, not firm and nontender Auscultation: normal bowel sounds Rectal Exam - Male: Yes deferred General: Yes no CVA tenderness Back/Spine/Pelvis Back: no CVA tenderness Skin General skin exam: no rashes or lesions noted Neuro General: patient oriented x3 Cranial nerves: Yes Equal, round and reactive pupils present, Yes Midline tongue present, Yes Ability to bilaterally elevate shoulders present and No Nystagmus present Gait exam (Neuro): Normal gait present Extrem General: Yes normal to inspection, Yes full ROM, No no pedal edema and No edema Psych Speech and movement: Normal speech and movement present Affect: normal affect Insight: Good insight present (Psych) Judgement: Good judgement present (Psych) Coding Level of Care Code Est Pt Level 3 (86547) Diagnoses Primary hypertension I10 Hypertension type: primary hypertension Obesity E66.9 Obesity type: due to excess calories Hypersomnolence G47.10 Abdominal wall bulge R19.00 Assessment & Plan Assessment & Plan (1) Hypertension: Code(s): I10 - Essential (primary) hypertension Category: Medical Qualifiers: Hypertension type: primary hypertension Qualified Code(s): I10 - Essential (primary) hypertension Plan: Continue on current blood pressure medication. Avoid salt intake and encourage healthy diet and regular exercise. Blood pressure at home have been elevated above 140/90. Plan to add Amlodipine to medication regimen at this time and continue to monitor blood pressure at home. (2) Obesity: Code(s): E66.9 - Obesity, unspecified Category: Medical Qualifiers: Obesity type: due to excess calories Plan: Healthy diet and regular exercise is encouraged. (3) Hypersomnolence: Code(s): G47.10 - Hypersomnia, unspecified Category: Medical Plan: Plan to obtain sleep study for further evaluation. Sleep study scheduled for March. (4) Abdominal wall bulge: Code(s): R19.00 - Intra-abdominal and pelvic swelling, mass and lump, unspecified site Category: Medical Plan: Patient has visible bulge on exam that is easily reducible without discernible edges. I did discuss the test of choice is a abdominal/pelvis CAT scan. Patient has found online resource through [employer] team virtual and program and would like to explore these options prior to imaging. Reviewed red flag symptoms led to present for re-evaluation Plan The plan includes adding amlodipine to the current antihypertensive regimen to better control blood pressure, as lisinopril alone has not been sufficient. Due to the patient's history of gout, hydrochlorothiazide is avoided to prevent flare-ups, and amlodipine is chosen. The patient is advised to continue monitoring blood pressure at home and report any persistent elevations. For neuropathy, the patient is recommended to take vitamin supplements and to incorporate stretching exercises to alleviate symptoms. Vitamin D supplementation is also advised to address the deficiency and potentially improve energy levels. The patient is encouraged to maintain lifestyle modifications, including dietary changes and increased physical activity, to aid in weight management and blood pressure control. A follow-up appointment is scheduled in six weeks to assess the effectiveness of the new medication regimen. This note was constructed using voice recognition software. While every effort has been made to ensure accuracy and commercial kitchen service technician, still areas may have been included sometimes these areas may affect the content or meeting of the given symptoms. Total time spent caring for the patient today was 20 minutes. This includes time spent before the visit reviewing the chart, time spent during the visit, and time spent after the visit and documentation. Patient was informed and verbally consented to the use of an ambient scribe for clinic note documentation during this visit. Medications: New amlodipine 5 mg PO DAILY 90 tabs 0RF
[2025-02-25 10:12] VITALS: BP 160/106; PULSE 108; O2SAT 98; BMI 28.7
[2025-02-25 10:46] VITALS: BP 164/98
--- OUTSIDE RECORDS SUMMARY | 2025-02-25 11:22 | XMS_ITS | Clinical Summary ---
Author Organization [facility] Address [address] [place] [address] Phone Care Team Providers Care Generator Switchboard Operator Name Role Phone Harshad Awad MD Primary Care Provider Allergies No known active allergies Medications allopurinol (ZYLOPRIM) 300 MG tablet Take 300 mg by mouth daily. Active diazePAM (VALIUM) 5 MG tablet Take 1 tablet (5 mg total) by mouth every 6 (six) hours as needed (Muscle spasm). 12 tablet 8 Active Additional Information Patient not taking.Reported on 04/22/2022 Active Problems No known active problems Immunizations Immunization Administration Dates Next Due COVID-19 (Pre-05/01) Moderna Vaccine, mRNA, PF 05/17/2021,11/11/2020,10/14/2020 Influenza Quadrivalent Preservative Free IM 02/2021,06/17/2020 Influenza Quadrivalent w/ Preservative IM 2017 Social History Tobacco Use Types Packs/Day Years Used Date Smoking Tobacco: Never Smokeless Tobacco: Never Tobacco Cessation:Counseling Given: Not Answered Alcohol Use Standard Drinks/Week Comments Yes 14 (1 standard drink = 0.6 oz pu re alcohol) weekly Education Answer Date Recorded Are you interested in more education? Not on madalyn e 11/04/2022 Are you concerned about learning? Not on file 11/04/2022 No 11/04/2022 No 11/04/2022 Digital Access Answer Date Recorded No 12/03/2022 No 12/03/2022 Reliable internet access at home? Not on file 12/03/2022 Device with a working camera? Not on file Intimate Partner Violence Answer Date R ecorded Are you denied basic needs s uch as food, clothing, or medical care? No 05/05/2023 In the past 12 months have y ou been in a relationship with a person who hurts, threatens, or tries to control you? No 05/05/2023 Are you denied basic needs s uch as food, clothing, or medical care? No 05/05/2023 In the past 12 months have y ou been in a relationship with a person who hurts, threatens, or tries to control you? No 05/05/2023 Sex and Gender Information Value Date Recorded Sex Assigned at Male 05/30/2018 4:36 PM EST Legal Sex Male 9:34 PM EDT Gender Identity Male 05/30/2018 4:36 PM EST Sexual Orientation Straight 05/30/2018 4: 36 PM EST Last Filed Vital Signs Vital Sign Reading Time Taken Comments Blood Pressure 169/115 05/05/2023 2:43 PM EDT Pulse 61 05/05/2023 2:43 PM EDT Temperature 37 C (98.6 F) 05/05/2023 10:42 AM EDT Respiratory Rate 18 05/05/2023 2:43 PM EDT Oxygen Saturation 100% 05/05/2023 2:43 PM EDT Inhaled Oxygen Concentration - - Weight 90.7 kg (200 lb) 05/05/2023 10:42 AM EDT Height 177.8 cm (5' 10 ) 05/05/2023 10:42 AM EDT Body Mass Index 28.7 05/05/2023 10:42 AM EDT Plan of Treatment Health Maintenance Due Date Last Done Comments Adult Td,Tdap Booster 1970 LIPID PANEL 1970 DEPRESSION SCREENING 1982 HEPATITIS C SCREENING 1988 HIV ONE-TIME SCREENING (18-65 YEARS) 1988 COLOGUARD 10/11/2015 COLONOSCOPY 10/11/2015 COLORECTAL CANCER SCREENING 10/11/2015 FIT TEST 10/11/2015 FOBT 10/11/2015 SIGMOIDOSCOPY 10/11/2015 VIRTUAL COLONOSCOPY 10/11/2015 PNEUMOCOCCAL VACCINES (50+ years) (1 of 1 - PCV) 2020 ZOSTER VACCINES (1 of 2) 2020 COVID-19 VACCINE (5 - season) 2024 12/29/2021, 05/17/2021, 11/11/2020, Additional history exists CREATININE LEVEL 05/05/2024 05/05/2023 SCREENING FOR DIABETES 05/05/2026 05/05/2023 SMOKING STATUS SCREENING (Once After 26 Yrs) Completed 05/05/2023 HEPATITIS A VACCINES Aged Out No long er eligible based on patient's age to complete this topic HIB VACCINES Aged Out No longer eligi ble based on patient's age to complete this topic MENINGOCOCCAL VACCINES (ACWY) Aged Out No longer eligible based on patient's age to complete this topic MENINGOCOCCAL VACCINES (B) Aged Out N o longer eligible based on patient's age to complete this topic Medical Devices Not on file Procedures Procedure Name Priority Date/Time Associated Diagnosis Comments BASIC METABOLIC PANEL STAT 05/05/2023 11:13 AM EDT from Last 3 Months or Most Recently Relevant to Health Maintenance Results * Basic metabolic panel (05/05/2023 11:13 AM EDT) SODIUM 142 133 - 146 mmol/L [facility] CHLORIDE 105 96 - 108 mmol/L [facility] POTASSIUM 4.2 3.3 - 5.1 mmol/L [facility] CO2 27 21 - 35 mmol/L [facility] BUN 9 6 - 19 mg/dL [facility] CREATININE 0.90 0.5 - 1.5 mg/dL [facility] GLUCOSE 94 70 - 99 mg/dL [facility] CALCIUM 9.2 8.4 - 10.3 mg/dL [facility] EGFR 103 >59 mL/min/1.7 3m2 [facility] Comment:Estimated glomerular filtration rate calculated using the CKD-EPI refit equation. ANION GAP 14 10 - 20 mmol/L [facility] Blood 05/05/2023 11:1 3 AM EDT 05/05/2023 11:20 AM EDT us Zeeshan Mckeon MD LAB BLOOD ORDERABLES Fin al Result [address] [address] from Last 3 Months or Most Recently Relevant to Health Maintenance Insurance Member Subscriber Plan / Payer (Ef fective 2021-Present) Name:Art Berry Relation to Subscriber:Spouse Name:ARASH BERRY Date of :1972 (Home) Address: [address] [place] [address] Payer ID:[id number] (NAIC) Type:HMO Address: [address] [place], [place] [address] Care Teams Generator Switchboard Operator Relationship Specialty Start Date End Date Harshad Awad MD [address] [place] [address] [place] [address] PCP - General Internal Medicine 05/30/18 Additional Source Comments The information contained in this document represents components of the legal health record. It is not the complete legal health record.[facility]
== END 2025-02-25 10:56 | disposition home or self-care (01) ==
LOC: HO.HMCH 10:07
DX: I10 Essential (primary) hypertension (principal); E66.9 Obesity, unspecified; Z68.28 Body mass index [BMI] 28.0-28.9, adult; G47.10 Hypersomnia, unspecified; R19.00 Intra-abdominal and pelvic swelling, mass and lump, unspecified site

== ENCOUNTER → 2025-04-03 10:02 | Outpatient (BNV) | payer BC, SELFPAY | PROVIDERS: Visit Provider Internal Medicine | DX: G47.33 Obstructive sleep apnea (adult) (pediatric) (principal) | CPT/HCPCS: 95806 ==

== ENCOUNTER → 2025-04-03 10:03 | Outpatient (REF) | payer BC, SELFPAY ==
--- OUTSIDE RECORDS SUMMARY | 2023-12-22 05:10 | XMS_ITS ---
Author Organization [facility] Address [address] [place] [address] Care Team Providers Care X Ray Operator Name Role Phone Harshad Awad MD Primary Care Provider Donny Carrera Unavailable [phone] REASON FOR VISIT colon screening Problems Problem Type SNOMED Code ICD Code Onset Dates Problem Status W/U Status Risk Notes Problem Diverticular disease of colon (431146607) Diverticulosis of large intestine without perforation or abscess without bleeding (K57.30) Active confirmed Encounters Encounter Location Date Provider Diagnosis [facility] [address] [place], [place] [id number] 12/22/2023 Donny Olivarez Encounter for scre ening colonoscopy Z12.11 ; Colon polyps K63.5 ; Rectal polyp K62.1 ; Diverticulosis of large intestine without perforation or abscess without bleeding K57.30 and Other hemorrhoids K64.8 Assessments Encounter Date Diagnosis (ICD Code) Assessment Notes Treatment Notes Treatment Clinical Notes Section Notes 12/22/2023 Encounter for screening colonoscopy (ICD-10 - Z12.11) 12/22/2023 Colon polyps (ICD-10 - K63.5) 12/22/2023 Rectal polyp (ICD-10 - K62.1) 12/22/2023 Diverticulosis of large intestine without perforation or abscess without bleeding (ICD-10 - K57.30) 12/22/2023 Other hemorrhoids (ICD-10 - K64.8) Plan Of Treatment No Information Progress Notes * RENZO BERRYB:1970 (54 yo M)Acc No.[id number]:12/22/2023 COLON WITH MAC Patient: WILDER ZAVALA Provider: Aster Olivarez MD :1970 A ge:53 Y S ex:Male Date:12/22/2023 Address:[address] [place] [address] [address] [id number] Pcp:Harshad Awad MD Subjective: * Chief Complaints: * 1 . Colon screening. * Medical History: Objective: * Vitals: Assessment: * Assessment: 1. E ncounter for screening colonoscopy - Z12.11 (Primary) 2 . C olon polyps - K63.5 3 . R ectal polyp - K62.1 4 . D iverticulosis of large intestine without perforation or abscess without bleeding - K57.30 5 . O ther hemorrhoids - K64.8 Plan: * Treatment: * Procedure Codes: 4 5380 COLONOSCOPY AND BIOPSY, Modifiers: PT * * The named appointment provid er may or may not be the originator of this progress note, and it is not deemed complete until electronically signed by the appointment provider. Sign off status: Pending * Provider: Aster Olivarez MD Date: 0 12/22/2023 Generated for Jen montanez/Vinny/Radhasmitting on: 0 04/03/2025 12:10 PM EDT
--- OUTSIDE RECORDS SUMMARY | 2025-04-03 12:10 | XMS_ITS | Patient Health Record ---
Author Organization [facility] Address [address] [place] [address] Care Team Providers Care Salt Lifter Name Role Phone Harshad Awad MD Primary Care Provider Donny Carrera Unavailable [phone] Allergies No Known Allergies Reason For Referral No Information Medications Medication SIG (Take, Route, Fr equency, Duration) Notes Start Date End Date Status Allopurinol 300 MG Oral for 30 Active Lisinopril 10 MG TAKE ONE TABLET BY M OUTH EVERY DAY Oral for 30 Active Immunizations Vaccine Route Administration Date Status Comme nts Influenza Unknown 03/28/2023 Administered Social History Tobacco Use: Social History Observation Description Date Details (start date - stop date) Never Smoker NA - NA Tobacco Use/Smoking Question Answer Notes Patient is a nonsmoker Alcohol Screen Question Answer Notes Did you have a drink contain ing alcohol in the past year? Yes How often did you have a dri nk containing alcohol in the past year? 4 or more times a week (4 points) How many drinks did you have on a typical day when you were drinking in the past year? 1 or 2 drinks (0 point) How often did you have 6 or more drinks on one occasion in the past year? Never (0 point) Points 4 Interpretation Positive Section Notes: Nonsmoker; occasional alcoho l Problems Problem Type SNOMED Code ICD Code Onset Dates Problem Status W/U Status Risk Notes Problem Colon cancer screening (522181184) Colon cancer screening (Z12.11) Active confirmed Problem Rectal bleeding (60296832) Rectal bleeding (K62.5) Active confirmed Problem Diverticular disease of colon (454460943) Diverticulosis of large intestine without perforation or abscess without bleeding (K57.30) Active confirmed Problem Irritable bowel syndrome (67340301) Irritable bowel syndrome with both constipation and diarrhea (K58.0) Active confirmed Plan Of Treatment Pending Test Test Name Order Date CELIAC PANEL #10 09/13/2023 Future Test Test Name Order Date COLONOSCOPY 09/13/2023 Insurance Providers Payer Name Payer Address Payer Phone Subscriber Number Group Number Insured Name Patient Relationship to Insured Coverage Start Date Coverage End Date [facility] [address] [place] [address] [id number] WILDER BERRY Self - patient is the insured Medical (General) History Medical History History ICD Code HTN Gout Denies AK,DM,CVA,Lung disease,renal dise ase Surgical History Surgery Date(Month/Year) Bilateral Inguinal Hernia Repair
--- OUTSIDE RECORDS SUMMARY | 2025-04-03 12:10 | XMS_ITS | Clinical Summary ---
Author Organization [facility] Address [address] [place] [address] Phone Care Team Providers Care Plumbing Inspector Name Role Phone Harshad Awad MD Primary Care Provider [phone] Allergies No known active allergies Medications allopurinol [...] 2020 ZOSTER VACCINES (1 of 2) 2020 CREATININE LEVEL 05/05/2024 05/05/2023 INFLUENZA VACCINE (#1) 2025 , 06/17/2020, 04/09/2018 COVID-19 VACCINE (5 - season) 2025 12/29/2021, 05/17/2021, 11/11/2020, Additional history exists SCREENING FOR DIABETES 05/05/2026 05/05/2023 SMOKING STATUS [...] EDT) SODIUM 142 133 - 146 mmol/L [facility] CHLORIDE 105 96 - 108 mmol/L [facility] POTASSIUM 4.2 3.3 - 5.1 mmol/L [facility] CO2 27 21 - 35 mmol/L [facility] BUN 9 6 - 19 mg/dL [facility] CREATININE 0.90 0.5 - 1.5 mg/dL [facility] GLUCOSE 94 70 - 99 mg/dL [facility] CALCIUM 9.2 8.4 - 10.3 mg/dL [facility] EGFR 103 >59 mL/min/1.7 3m2 [facility] Comment:Estimated glomerular filtration rate calculated using the CKD-EPI refit equation. ANION GAP 14 10 - 20 mmol/L [facility] Blood 05/05/2023 11:1 3 AM EDT 05/05/2023 11:20 AM EDT us Zeeshan Mckeon MD LAB BLOOD ORDERABLES Fin al Result Performing Organization Address City/State/[facility] Co de Phone Number [address] [address] from Last 3 Months or Most Recently Relevant to Health Maintenance Insurance Member Subscriber Plan / Payer (Ef fective 2021-Present) Name:Art Berry Relation to Subscriber:Spouse Name:ARASH BERRY Date of :1972 (Home) Address: [address] [place] [address] Payer ID:[id number] (NAIC) Type:HMO Address: [address] [place], [place] Member Subscriber Plan / Payer (Ef fective 2021-Present) Name:Art Berry Relation to Subscriber:Spouse Name:BERRYARASH Date of :1972 (Home) Address: [address] [place] [address] Payer ID:[id number] (NAIC) Type:HMO Address: [facility] [id number] [place], [place] Member Subscriber Plan / Payer (Ef fective 2021-Present) Name:Art Berry Relation to Subscriber:Spouse Name:BERRYARASH SMITH Fadia Date of :1972 (Home) Address: [address] [place] [address] Payer ID:[id number] (NAIC) Type:HMO Address: [facility] [id number] [place], [place] Care Teams Plumbing Inspector Relationship Specialty Start Date End Date Harshad Awad MD [address] [place] [address] [place] [address] PCP - General Internal Medicine 05/30/18 Additional Source Comments The information contained in this document represents components of the legal health record. It is not the complete legal health record.[facility]
== END ==
LOC: HO.SL 10:03
DX: G47.33 Obstructive sleep apnea (adult) (pediatric) (principal); G47.10 Hypersomnia, unspecified
CPT/HCPCS: 95806

== ENCOUNTER 2025-04-09 11:08 | Outpatient (AMB) | payer BC, SELFPAY ==
[2025-04-09 11:18] VITALS: BP 148/100; PULSE 89; TEMP 36.2; O2SAT 98; BMI 29.6
--- NOTE | 2025-04-09 11:18 | MHC.PC.OV ---
Vital Signs 04/09/25 11:18 Height 5 ft 10 in Weight 206 lb 6 oz BMI 29.6 BP 148/100 H Blood Pressure Location Lt brachial Position Sitting Pulse 89 Pulse Source Pulse Oximeter Temp 97.1 F Temp Source Temporal Artery Scan Pulse Oximetry (%) 98 Oxygen Delivery Method Room Air Intake Visit Reasons: 6 weeks f/u HTN Allergies amlodipine Adverse Reaction (Mild, Verified 04/09/25 11:32) leg swelling Medication List - Last Reconciled 04/09/25 by Cata Ashley PA-C allopurinol 300 mg PO DAILY amlodipine 5 mg PO DAILY cholecalciferol (vitamin D3) 25 mcg PO DAILY lisinopril 40 mg PO DAILY tadalafil (Cialis) 5 mg PO DAILY Tobacco use date assessed: 04/09/25 Dental Screening Dental Screen Date: 04/09/25 Did you have a dental visit in the last 12 months?: No Did you have a dental problem in the last 6 months where you did not have access to dental care?: No Was dental information given to patient?: Patient has dentist HPI 6 weeks f/u HTN HPI Details 54-year-old male with past medical history of gout, hypertension last seen 02/2025 coming in for follow up. Presenting with uncontrolled hypertension. Hypertension management has been challenging due to medication side effects and limited options due to gout. Blood pressure remains elevated despite home monitoring and recent readings of 150/98 mmHg. He mentioned see amlodipine has been causing significant leg swelling and would like to discontinue this medication. Suspected sleep apnea is under investigation, with pending sleep study results. Low testosterone and elevated PSA levels have been identified, with potential symptoms of fatigue and decreased libido. [facility] Medical History Melanoma HTN (hypertension) Gout Surgical History History of bilateral inguinal hernia repair Family History Mother No problems noted. Father No problems noted. 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 1. Little interest or pleasure in doing things: not at all 2. Feeling down, depressed, or hopeless: not at all 3. Trouble falling or staying asleep, or sleeping too much: not at all 4. Feeling tired or having little energy: not at all 5. Poor appetite or overeating: not at all 6. Feeling bad about yourself - or that you are a failure or have let yourself or your family down: not at all 7. Trouble concentrating on things, such as reading the newspaper or watching television: not at all 8. Moving or speaking so slowly that other people could have noticed. Or the opposite - being so fidgety or restless that you have been moving around a lot more than usual: not at all 9. Thoughts that you would be better off or of hurting yourself in some way: not at all Total score: 0 Depression Screening Interpretation: Negative Depression Screening Done: Yes Source: Developed by Drs. Donny Palma, Amirah Diaz, John Porras and colleagues, with an educational kamala from [facility]. Thrive Questionnaire Date Thrive assessed: 02/25/25 I am a: Patient What is your living situation today?: I have a steady place to live Within the past 12 months, did the food you bought not last and you didn't have the money to get more?: Never true Within the past 12 months, did you worry whether your food would run out before you got money to buy more?: Never true Do you have trouble paying for medicines?: No Do you have trouble getting transportation to medical appointments?: No Do you have trouble paying your heating and electricity bill?: No Do you have trouble taking care of your child, family member or friend?: No Do you have trouble with day-to-day activities such as bathing, preparing meals, shopping, managing finances, etc.?: No Are you currently unemployed and looking for a job?: No Are you interested in more education?: No Please select the resources that you would like help with: None Currently or been in a relationship where the following occur: No concerns reported THRIVE Score: 0 AUDIT C Alcohol Use Questionnaire (AUDIT-C) 1. How often do you have a drink containing alcohol?: 4 or more times a week 2. How many drinks containing alcohol do you have on a typical day when you are drinking?: 3 or 4 3. How often do you have six or more drinks on one occasion?: Never Total Score: 5 JASPER-7 AMB Questionnaire JASPER-7 Date JASPER - 7 assessed: 02/25/25 Feeling nervous, anxious, or on edge: 0 = Not at all Not being able to stop or control worryin = Not at all Worrying too much about different things: 0 = Not at all Trouble relaxin = Not at all Being so restless that it is hard to sit still: 0 = Not at all Becoming easily annoyed or irritable: 0 = Not at all Feeling afraid as if something awful might happen: 0 = Not at all Total JASPER-7 score (0-4 normal; 5-9 mild; 10-14 moderate; 15-21 severe): 0 Source: Developed by Drs. Donny Palma, Amirah Diaz, John Porras and colleagues, with an educational kamala from [facility]. Review of Systems Const Denies body aches, Denies chills, Denies fever(s), Denies headache(s) and Denies poor appetite Eyes Reports no additional complaints ENT Denies dizziness and Denies headache(s) Card Denies chest pain, Denies edema, Denies lightheadedness and Denies dyspnea Resp Denies dyspnea GI Denies abdominal pain, Denies nausea and Denies vomiting Reports no additional complaints Musc Reports no additional complaints and Denies abnormal gait Skin/Breast Reports system reviewed and no additional complaints, except as documented Neuro Denies abnormal gait, Denies dizziness and Denies headache(s) Psych Reports no additional complaints Physical exam (Primary Care) Vital Signs: Last Vital Signs Temp 97.1 F 04/09/25 11:18 Pulse 89 04/09/25 11:18 BP 148/100 H 04/09/25 11:18 Pulse Ox 98 04/09/25 11:18 Oxygen Delivery Method Room Air 10/01/25 11:18 BMI result Body Mass Index 29.6 Tobacco/Smoking Status: Tobacco use Status Tobacco use date assessed 04/09/25 04/09/25 11:22 Patient Tobacco Use Status Never used Tobacco 04/09/25 11:18 e-Cigarette/Vaping Use Never Used 04/09/25 11:18 PHQ-9: PHQ-9 Score PHQ-9: Total score 0 04/09/25 11:26 Depression Screening Interpretation: Negative Thrive Assessment: Date of Thrive Assessment Date Thrive assessed 02/25/25 04/09/25 11:18 Currently or been in a relationship where the following occur: No concerns reported Const General: cooperative, healthy appearing, comfortable and no acute distress Orientation/consciousness: patient oriented x3 HENMT Head: Yes normocephalic Ears: hearing grossly normal bilaterally General nose exam: Normal external nose present Eyes General: appearance normal, both eyes and all related structures Conjunctivae: conjunctivae normal Neck Neck: Yes full ROM and Yes no lymphadenopathy Resp Effort & Inspection: normal respiratory effort Auscultation: clear to auscultation bilaterally, no crackles, no rales, no rhonchi and no wheezes Cardio Rate: regular rate Rhythm: regular rhythm Skin General skin exam: no rashes or lesions noted Neuro General: patient oriented x3 Gait exam (Neuro): Normal gait present Extrem General: Yes normal to inspection, Yes full ROM and No edema Psych Affect: normal affect Attitude: cooperative Insight: Good insight present (Psych) Judgement: Good judgement present (Psych) Coding Level of Care Code Est Pt Level 3 (22301) Diagnoses Primary hypertension I10 Hypertension type: primary hypertension Obesity E66.9 Obesity type: due to excess calories Hypersomnolence G47.10 Elevated PSA R97.20 Assessment & Plan Assessment & Plan (1) Hypertension: Code(s): I10 - Essential (primary) hypertension Category: Medical Qualifiers: Hypertension type: primary hypertension Qualified Code(s): I10 - Essential (primary) hypertension Plan: Continue on current blood pressure medication. Avoid salt intake and encourage healthy diet and regular exercise. Blood pressures remain elevated at home. Patient developed side effects to amlodipine plan to discontinue at this time and start on metoprolol for blood pressure management. He is not a candidate for HCTZ given his history of gout. (2) Obesity: Code(s): E66.9 - Obesity, unspecified Category: Medical Qualifiers: Obesity type: due to excess calories Plan: Healthy diet and regular exercise is encouraged. (3) Hypersomnolence: Code(s): G47.10 - Hypersomnia, unspecified Category: Medical Plan: Awaiting sleep study results (4) Elevated PSA: Code(s): R97.20 - Elevated prostate specific antigen [PSA] Category: Medical Plan: Patient having very mildly elevated PSA and low normal testosterone. I did offer a referral to Urology today which was declined by the patient. Plan to obtain repeat PSA and discussed to avoid specific activities prior to this blood work. Plan This note was constructed using voice recognition software. While every effort has been made to ensure accuracy and top printing press operator, still areas may have been included sometimes these areas may affect the content or meeting of the given symptoms. Total time spent caring for the patient today was 20 minutes. This includes time spent before the visit reviewing the chart, time spent during the visit, and time spent after the visit and documentation. Patient was informed and verbally consented to the use of an ambient scribe for clinic note documentation during this visit. Orders: Orders PSA, Ultra Sensitive Today R97.20 - Elevated prostate specific antigen [PSA] Uric Acid Today M10.9 - Gout, unspecified Medications: New metoprolol succinate ER 25 mg PO DAILY 90 tabs 0RF Discontinued amlodipine Discontinued Reason: Patient no longer taking 5 mg PO DAILY 90 tabs 0RF
--- OUTSIDE RECORDS SUMMARY | 2025-04-09 12:43 | XMS_ITS | Clinical Summary ---
Author Organization [facility] Address [address] [facility] [address] [place] [address] Phone Care Team Providers Care Metal Neutralizer Name Role Phone Harshad Awad MD Primary Care Provider [phone] Allergies No known active allergies Medications allopurinol [...] EDT) SODIUM 142 133 - 146 mmol/L [facility] CHLORIDE 105 96 - 108 mmol/L [facility] POTASSIUM 4.2 3.3 - 5.1 mmol/L [facility] CO2 27 21 - 35 mmol/L [facility] BUN 9 6 - 19 mg/dL [facility] CREATININE 0.90 0.5 - 1.5 mg/dL [facility] GLUCOSE 94 70 - 99 mg/dL [facility] CALCIUM 9.2 8.4 - 10.3 mg/dL [facility] EGFR 103 >59 mL/min/1.7 3m2 [facility] Comment:Estimated glomerular filtration rate calculated using the CKD-EPI refit equation. ANION GAP 14 10 - 20 mmol/L [facility] Blood 05/05/2023 11:1 3 AM EDT 05/05/2023 11:20 AM EDT us Zeeshan Mckeon MD LAB BLOOD ORDERABLES Fin al Result Performing Organization Address City/State/[facility] Co de Phone Number [address] [address] from Last 3 Months or Most Recently Relevant to Health Maintenance Insurance Member Subscriber Plan / Payer (Ef fective 2021-Present) Name:Art Berry Relation to Subscriber:Spouse Name:ARASH BERRY Date of :1972 (Home) Address: [address] [place] [id number] Payer ID:[id number] (NAIC) Type:HMO Address: [address] [place], [place] Member Subscriber Plan / Payer (Ef fective 2021-Present) Name:Art Berry Relation to Subscriber:Spouse Name:BERRYARASH Date of :1972 (Home) Address: [address] [place] [address] Payer ID:[id number] (NAIC) Type:HMO Address: [facility] [id number] [place], [place] Member Subscriber Plan / Payer (Ef fective 2021-Present) Name:Art Berry Relation to Subscriber:Spouse Name:BERRYARASH SMITH Fadia Date of :1972 (Home) Address: [address] [place] [address] Payer ID:[id number] (NAIC) Type:HMO Address: [facility] [id number] [place], [place] Care Teams Metal Neutralizer Relationship Specialty Start Date End Date Harshad Awad MD [address] [place] [address] [place] [address] PCP - General Internal Medicine 05/30/18 Additional Source Comments The information contained in this document represents components of the legal health record. It is not the complete legal health record.[facility]
== END 2025-04-09 11:51 | disposition home or self-care (01) ==
DX: I10 Essential (primary) hypertension (principal); Z68.29 Body mass index [BMI] 29.0-29.9, adult; E66.9 Obesity, unspecified; G47.10 Hypersomnia, unspecified; R97.20 Elevated prostate specific antigen [PSA]

== ENCOUNTER → 2025-04-22 19:30 | Outpatient (REF) | payer BC, SELFPAY ==
--- OUTSIDE RECORDS SUMMARY | 2023-12-22 05:10 | XMS_ITS ---
Author Organization [facility] Address [address] [place] [address] Care Team Providers Care Patient Services Technician Name Role Phone Harshad Awad MD Primary Care Provider Donny Carrera Unavailable [phone] REASON FOR VISIT colon screening Problems Problem Type SNOMED Code ICD Code Onset Dates Problem Status W/U Status Risk Notes Problem Diverticular disease of colon (704561089) Diverticulosis of large intestine without perforation or abscess without bleeding (K57.30) Active confirmed Encounters Encounter Location Date Provider Diagnosis [facility] [address] [place], [place] [phone] 12/22/2023 Donny Olivarez Encounter for scre ening [...] Notes * RENZO BERRYB:1970 (54 yo M)Acc No.[id number]:12/22/2023 COLON WITH MAC Patient: WILEDR ZAVALA Provider: Aster Olivarez MD :1970 A ge:53 Y S ex:Male Date:12/22/2023 Address:[address] [place] [address] [address] [id number] Pcp:Harshad Awad MD Subjective: * Chief Complaints: [...] MD Date: 0 12/22/2023 Generated for Jen montanez/Vinny/eTransmitting on: 1 10:30 PM EDT
--- OUTSIDE RECORDS SUMMARY | 2025-04-22 22:30 | XMS_ITS | Clinical Summary ---
Author Organization [facility] Address [address] [facility] [address] [place] [address] Phone Care Team Providers Care Guest Services Manager Name Role Phone Harshad Awad MD Primary Care Provider [phone] Allergies No known active allergies Medications allopurinol [...] , 06/17/2020, 04/09/2018 COVID-19 VACCINE (5 - 2024- season) 2025 12/29/2021, 05/17/2021, 11/11/2020, Additional history exists SCREENING FOR DIABETES 05/05/2026 05/05/2023 RSV VACCINE (1 - 1-dose 75+ series) 2045 SMOKING STATUS SCREENING (Once After 26 Yrs) [...] EDT) SODIUM 142 133 - 146 mmol/L [facility] CHLORIDE 105 96 - 108 mmol/L [facility] POTASSIUM 4.2 3.3 - 5.1 mmol/L [facility] CO2 27 21 - 35 mmol/L [facility] BUN 9 6 - 19 mg/dL [facility] CREATININE 0.90 0.5 - 1.5 mg/dL [facility] GLUCOSE 94 70 - 99 mg/dL [facility] CALCIUM 9.2 8.4 - 10.3 mg/dL [facility] EGFR 103 >59 mL/min/1.7 3m2 [facility] Comment:Estimated glomerular filtration rate calculated using the CKD-EPI refit equation. ANION GAP 14 10 - 20 mmol/L [facility] Blood 05/05/2023 11:1 3 AM EDT 05/05/2023 11:20 AM EDT Zeeshan Mckeon MD LAB BLOOD ORDERABLES Fin al Result [address] [address] from Last 3 Months or Most Recently Relevant to Health Maintenance Insurance [place] [address] [place] [address] [place] [address] Care Teams Guest Services Manager Relationship Specialty Start Date End Date Harshad Awad MD [address] [place] [address] [place] [address] PCP - General Internal Medicine 05/30/18 Additional Source Comments The information contained in this document represents components of the legal health record. It is not the complete legal health record.[facility]
--- OUTSIDE RECORDS SUMMARY | 2025-04-22 22:31 | XMS_ITS | Patient Health Record ---
Author Organization [facility] Address [address] [place] [address] Care Team Providers Care Transfill Technician Name Role Phone Harshad Awad MD Primary Care Provider Donny Carrera Unavailable [phone] Allergies No Known Allergies Reason For Referral No Information Medications Medication SIG (Take, Route, Fr equency, Duration) Notes Start Date End Date Status Allopurinol 300 MG Oral; Duration: 30 Active Lisinopril 10 MG TAKE ONE TABLET BY M OUTH EVERY DAY Oral; Duration: 30 Active Immunizations Vaccine Route Administration Date [...] Status Risk Notes Problem Colon cancer screening (567492611) Colon cancer screening (Z12.11) Active confirmed Problem Rectal bleeding (78914164) Rectal bleeding (K62.5) Active confirmed Problem Diverticular disease of colon (449464027) Diverticulosis of large intestine without perforation or abscess without bleeding (K57.30) Active confirmed Problem Irritable bowel syndrome (06051833) Irritable bowel syndrome with both constipation and diarrhea (K58.0) Active confirmed Plan Of Treatment Pending Test Test Name Order Date CELIAC PANEL #10 09/13/2023 Future Test Test Name Order Date COLONOSCOPY 09/13/2023 Insurance Providers Payer Name Payer Address Payer Phone Subscriber Number Group Number Insured Name Patient Relationship to Insured Coverage Start Date Coverage End Date [facility] [address] [place] [address] [id number] WILDER BERRY Self - patient is the insured Medical (General) History Medical History History ICD Code HTN Gout Denies ID,DM,CVA,Lung disease,renal dise ase Surgical History Surgery Date(Month/Year) Bilateral Inguinal Hernia Repair
== END ==
LOC: HO.SL 19:30
DX: G47.33 Obstructive sleep apnea (adult) (pediatric) (principal); R09.02 Hypoxemia
CPT/HCPCS: 95811

== ENCOUNTER → 2025-04-22 22:37 | Outpatient (BNV) | payer BC, SELFPAY | PROVIDERS: Visit Provider Internal Medicine | DX: G47.33 Obstructive sleep apnea (adult) (pediatric) (principal); R06.83 Snoring | CPT/HCPCS: 95811 ==